=== PATIENT | female | born 1960 | race African-American/Black ===

== ENCOUNTER 2017-08-09 03:42 | Observation (INO) | payer OTHER, MEDICAID ==
[~2017-08-09] VITALS: Ht 162.6 cm; Wt 90.9 kg
[2017-08-09] MEDS ORDERED: MORPHINE SULFATE 4 MG/ML CPJ (NOT FOR IM USE) IV STA (04:56)
[2017-08-09] MEDS ORDERED: ACETAMINOPHEN 325MG TABLET PO STA (04:56)
[2017-08-09] MEDS ORDERED: ONDANSETRON HCL 4MG/2ML VIAL IV STA (04:56)
[2017-08-09] MEDS ORDERED: SODIUM CHLORIDE 0.9% 1000ML BAG (SEPSIS BOLUS) IV ONE (05:00)
[2017-08-09 05:36] LABS: BASOPHILS % 0.3 % (0.0-2.0); EOSINOPHILS % 0.5 % (0.0-5.0); HEMATOCRIT. 39.8 % (36.0-48.0); HEMOGLOBIN. 13.5 g/dL (12.0-16.0); LYMPHOCYTES % 9.3 % (20.0-50.0); MEAN CORPUSCULAR HEMOGLOBIN 33.6 pg (28.0-32.0); MEAN CORPUSCULAR VOLUME 99.1 fL (81.0-99.0); MEAN PLATELET VOLUME 8.6 fl (7.4-10.4); MONOCYTES % 2.2 % (2.0-8.0); NEUTROPHILS % 87.7 % (40.0-76.0); RED BLOOD CELL COUNT 4.01 mill/uL (4.2-5.4); RED CELL DISTRIBUTION WIDTH 14.1 % (11.6-14.6)
[2017-08-09 05:42] LABS: CHLORIDE 102 mEq/L (98-107)
[2017-08-09 05:45] LABS: INR 1.1
[2017-08-09] MEDS ORDERED: SODIUM CHLORIDE 0.9% 1,000 ML IV SCH (06:22)
[2017-08-09 06:36] LABS: PLATELET 314 x1000/uL (130-400)
[2017-08-09 07:47] LABS: BG BASE EXCESS 3.8 mmol/L (-2.0-2.0); BG CARBOXYHEMOGLOBIN 1.1 % (0.5-1.5); BG DEOXYHEMOGLOBIN 13.3 % (0.0-5.0); BG FRACTION INSPIRED OXYGEN 21; BG METHEMOGLOBIN 0.2 % (0.0-1.5); BG OXYGEN SATURATION 86.5 % (92.0-98.5); BG OXYHEMOGLOBIN 85.4 % (94.0-97.0); BG PCO2 40.8 mmHg (35.0-45.0); BG PH 7.454 (7.350-7.450); BG PO2 52.4 mmHg (75.0-100.0); BG SAMPLE SITE LEFT BRACHIAL; BG TOTAL HEMOGLOBIN 13.6 g/dL (12.0-18.0); BG VENT MODE ROOM AIR
[2017-08-09 08:00] VITALS: BP 148/53
[2017-08-09] MEDS ORDERED: ONDANSETRON HCL 4MG/2ML VIAL IV PRN ×2 (09:30→14:15)
[2017-08-09 10:38] VITALS: BP 148/53
[2017-08-09] MEDS ORDERED: BENA40TA3 (10:54)
[2017-08-09] MEDS ORDERED: CHOLESTEROL MEDS (10:54)
[2017-08-09] MEDS ORDERED: ASPI-1159 (10:56)
[2017-08-09] MEDS ORDERED: HYDR-4009 (10:56)
[2017-08-09 12:00] VITALS: BP 130/61
[2017-08-09] MEDS ORDERED: POTASSIUM CHLORIDE 20MEQ TABLET SR PO SCH (13:30)
[2017-08-09] MEDS ORDERED: DEXT 5%/0.45% NACL 1000ML 1,000 ML IV SCH (14:15)
[2017-08-09] MEDS ORDERED: IPRATROPIUM/ALBUTEROL 0.5-3(2.5)MG/3ML NEB INH PRN (14:15)
[2017-08-09] MEDS ORDERED: ACETAMINOPHEN 325MG TABLET PO PRN (14:15)
[2017-08-09] MEDS ORDERED: CLONIDINE 0.1MG TABLET PO PRN (14:15)
[2017-08-09] MEDS ORDERED: HYDROCODONE/ACETAMINOPHEN 5/325MG TABLET PO PRN (14:15)
[2017-08-09] MEDS ORDERED: ENOXAPARIN 40MG/0.4ML SYR SUBCUT NR (14:30)
[2017-08-09 16:00] VITALS: BP 139/66
[2017-08-09] MEDS ORDERED: LEVOFLOXACIN 500MG PREMIX 100 ML IV SCH (16:00)
[2017-08-09] MEDS: LOSARTAN POTASSIUM 25 MG TABLET PO SCH (16:01)
[2017-08-09] MEDS: PANTOPRAZOLE SODIUM 40 MG/VIAL IV SCH (16:02)
[2017-08-09 17:07] LABS: CHLORIDE 102 mEq/L (98-107)
[2017-08-09 20:00] VITALS: BP 145/59
[2017-08-09] MEDS ORDERED: IOHEXOL-300 100 ML BOTTLE ONE (21:31)
[2017-08-10] VITALS: BP 107/47
[2017-08-10 04:00] VITALS: BP 141/75
[2017-08-10 07:10] LABS: BASOPHILS % 0.4 % (0.0-2.0); EOSINOPHILS % 0.9 % (0.0-5.0); HEMATOCRIT. 32.6 % (36.0-48.0); HEMOGLOBIN. 11.1 g/dL (12.0-16.0); LYMPHOCYTES % 21.2 % (20.0-50.0); MEAN CORPUSCULAR HEMOGLOBIN 34.1 pg (28.0-32.0); MEAN CORPUSCULAR VOLUME 100.4 fL (81.0-99.0); MEAN PLATELET VOLUME 8.2 fl (7.4-10.4); MONOCYTES % 10.9 % (2.0-8.0); NEUTROPHILS % 66.6 % (40.0-76.0); PLATELET 269 x1000/uL (130-400); RED BLOOD CELL COUNT 3.25 mill/uL (4.2-5.4); RED CELL DISTRIBUTION WIDTH 14.2 % (11.6-14.6)
[2017-08-10 07:24] LABS: T4 FREE 0.91 ng/dL (0.76-1.46)
[2017-08-10] MEDS: LOSARTAN POTASSIUM 25 MG TABLET PO SCH (08:34)
[2017-08-10] MEDS: PANTOPRAZOLE SODIUM 40 MG/VIAL IV SCH (08:35)
[2017-08-10] MEDS ORDERED: ENOXAPARIN 30MG/0.3ML SYR SUBCUT SCH (09:00)
[2017-08-10] MEDS ORDERED: POTASSIUM CHLORIDE 20MEQ TABLET SR PO NR (13:36)
[2017-08-10 15:28] VITALS: BP 136/62
[2017-08-11] MEDS ORDERED: PANTOPRAZOLE 40MG DR TABLET PO SCH (06:45)
== END 2017-08-10 17:15 | disposition home or self-care (01) ==
LOC: ER 03:42 → 5WST 06:24 → INTOOBSV 06:24 → ENRESERV 07:36
PROVIDERS: ADMIT Internal Medicine; ATTEND Internal Medicine
DX: R10.13 Epigastric pain (principal); R11.2 Nausea with vomiting, unspecified; R19.7 Diarrhea, unspecified; D72.829 Elevated white blood cell count, unspecified; I10 Essential (primary) hypertension; G89.4 Chronic pain syndrome; Z79.899 Other long term (current) drug therapy; Z92.3 Personal history of irradiation; Z90.49 Acquired absence of other specified parts of digestive tract; Z85.118 Personal history of other malignant neoplasm of bronchus and lung; Z92.21 Personal history of antineoplastic chemotherapy; Z79.1 Long term (current) use of non-steroidal anti-inflammatories (NSAID)
CPT/HCPCS: 36415; 36600; 71045; 71260; 74176; 80048; 80053; 80061; 82375; 82805; 83605; 83690; 84439; 84443; 85025; 85610; 87040; 87804; 93005; 96361; 96365; 96372; 96375; 96376; 99285; C9113; G0378; J1650; J1956; J2270; J2405; J3490; J7030; Q9967; 96374